=== PATIENT | female | born 1980 | race Caucasian/White ===

== ENCOUNTER 2017-11-04 10:44 | Day surgery (SDC) | payer OTHER ==
[~2017-11-04] VITALS: Ht 165.1 cm; Wt 150.1 kg
[~2017-11-04 10:44] MED LIST: DEPO-PROVER150 MG/ML IM; Feosol PO; HYDROCODON-ACE1 EAC7 PO; IBUPROFEN800 MG PO; Motrin PO; NAPROSYN500 MG PO; PROCARDIA XL30 MG PO; VALIUM5 MG PO; ~No Medications
[2017-11-04 11:36] LABS: BASOPHIL (%) 0.8 % (0-1); BASOPHIL COUNT 0.1 K/uL (0-0.1); EOSINOPHIL (%) 6.2 % (0-5); EOSINOPHIL COUNT 0.5 K/uL (0-0.3); HEMATOCRIT 42.1 % (36.0-46.0); HEMOGLOBIN 14.4 G/DL (11.9-15.5); IMMATURE GRANULOCYTE (%) 0.3 % (0.0-0.7); LYMPHOCYTE (%) 36.5 % (15-42); LYMPHOCYTE COUNT 2.9 K/uL (1.0-2.8); MCH 30.1 PG (29.0-34.0); MCHC 34.2 G/DL (30.0-36.0); MCV 87.9 FL (83-99); MONOCYTE (%) 5.5 % (3-12); MONOCYTE COUNT 0.4 K/uL (0-0.8); NEUTROPHIL (%) 50.7 % (45-76); PLATELET COUNT 256 K/uL (156-360); RBC DIS.WIDTH-CV 12.8 % (11.8-14.6); RBC DIS.WIDTH-SD 41.4 % (39-53); RED BLOOD COUNT 4.79 M/uL (3.80-5.20); WHITE BLOOD COUNT 7.9 K/uL (4.1-10.2)
[2017-11-04 11:37] VITALS: BP 118/75
[2017-11-04] MEDS ORDERED: IBUPROFEN800 MG PO (14:04)
[2017-11-04 15:23] VITALS: BP 142/83
[2017-11-04 16:12] VITALS: BP 135/92
== END 2017-11-04 16:27 | disposition home or self-care (01) ==
LOC: SDC 10:44 → 2SOUTH 11:08 → EDSTATUS 11:10 → SDC 11:10
PROVIDERS: Obstetrics & Gynecology
PROC: 0U5C7ZZ Destruction of Cervix, Via Natural or Artificial Opening (ICD-10-PCS; principal; 2017-11-04)
DX: C53.9 Malignant neoplasm of cervix uteri, unspecified (principal); I10 Essential (primary) hypertension; E66.01 Morbid (severe) obesity due to excess calories; Z68.43 Body mass index [BMI] 50.0-59.9, adult; F17.200 Nicotine dependence, unspecified, uncomplicated
CPT/HCPCS: 81025; 85025; 86850; 86900; 86901; 88305; 88307; J0131; J0330; J1100; J1885; J2250; J2405; J3010